=== PATIENT | female | born 1980 | race Caucasian/White ===

== ENCOUNTER 2022-08-12 10:19 | Emergency (ER) | payer OTHER ==
[~2022-08-12] VITALS: Ht 160 cm; Wt 54.4 kg
[~2022-08-12 10:19] MED LIST: PRILOSEC20 MG
[2022-08-12] MEDS ORDERED: DELZICOL400 M1 (10:44)
[2022-08-12] MEDS ORDERED: MAYZENT2 MG (10:44)
== END 2022-08-12 15:55 | disposition home or self-care (01) ==
LOC: ER 10:19
DX: K51.90 Ulcerative colitis, unspecified, without complications (principal)